=== PATIENT | female | born 1980 ===

== ENCOUNTER → 2020-09-26 | Outpatient (CLI) | payer BC ==
--- NOTE | 2020-09-26 13:42 | Diagnostic Imaging Report ---
PROCEDURE: CT abdomen and pelvis without contrast. TECHNIQUE: Multiple contiguous axial images were obtained through the abdomen and pelvis without the use of intravenous contrast. Auto Exposure Controls were utilized during the CT exam to meet ALARA standards for radiation dose reduction. INDICATION: Fever, nausea, right upper and left lower quadrant pain, fatigue, and dehydration. FINDINGS: There are patchy infiltrates in the lung bases involving left greater than right lower lobes and the caudal aspect of the right middle lobe, most suggestive of multifocal pneumonia. No basilar pleural fluid. No empyema or abscess demonstrated. The appendix is surgically absent. There is no diverticulitis. The uterus, adnexa, and urinary bladder appeared unremarkable. There is no bowel obstruction or ileus. Liver, spleen, adrenals, pancreas, gallbladder, and kidneys are all nonacute. The aorta is nonaneurysmal. IMPRESSION: Basilar pneumonias. The abdominopelvic portion of the study is unremarkable. Dictated by: Dictated on workstation # [id number]
== END ==
LOC: RAD 13:45
PROVIDERS: ATTEND Nurse Practitioner Family
DX: J18.9 Pneumonia, unspecified organism (principal); R10.11 Right upper quadrant pain; R10.32 Left lower quadrant pain; R11.0 Nausea; K59.1 Functional diarrhea; R74.8 Abnormal levels of other serum enzymes; R53.83 Other fatigue; M79.18 Myalgia, other site; Z20.828 Contact with and (suspected) exposure to other viral communicable diseases
CPT/HCPCS: 74176